=== PATIENT | female | born 1995 | race Caucasian/White ===

== ENCOUNTER → 2023-09-01 | Outpatient (CLI) | payer BC ==
--- NOTE | 2023-09-01 15:09 | US ---
EXAMINATION TYPE: Transabdominal DATE OF EXAM: 09/01/2023 2:41 PM COMPARISON: NONE CLINICAL INDICATION: Female, 28 years old with history of O46.91 BLEEDING; Patient states last period was 06/29/2023, but has irregular cycles. Patient states this is her first . Heavy bleeding for one day, clotting and cramping. EXAM PERFORMED: Transvaginal (TV) and Transabdominal (TA) EXAM MEASUREMENTS: GESTATIONAL AGE / DATING Physician Established: Not yet established Dates by LMP: Patient states last period was 06/29/2023, but has irregular cycles (9 weeks/1 days) MATERNAL ANATOMY Uterus: 8.9 x 4.3 x 5.6cm Right Ovary: not visualized Left Ovary: 2.1 x 2.0 x 2.2cm Post CDS / Adnexa: WNL Presence of free fluid: No Presence of corpus luteal cyst: No Presence of subchorionic bleed: No GESTATION / SURVEY IUP: No IUP seen at this time Beta HcG (if available): Not available at this time No IUP seen today. Endometrium contains hypoechoic streaks within and measures 1.2cm. Right ovary n ot seen due to overlying bowel gas and patient body habitus. Prelim given to ordering physician at 14:55 pm IMPRESSION: 1. No intrauterine gestation identified. Consider spontaneous and ectopic within t he differential. Correlate with beta hCG
== END | disposition home or self-care (01) ==
LOC: RADUSWWP 13:54
PROVIDERS: ATTEND Obstetrics & Gynecology
DX: O20.0 Threatened abortion (principal)
CPT/HCPCS: 36415; 76801; 76817; 86850; 86900; 86901

== ENCOUNTER → 2023-09-02 | Outpatient (CLI) | payer BC | END | disposition home or self-care (01) | LOC: LABWHC1 16:34 | PROVIDERS: ATTEND Obstetrics & Gynecology | DX: O03.9 Complete or unspecified spontaneous abortion without complication (principal) | CPT/HCPCS: 36415; 84702 ==

== ENCOUNTER → 2023-09-06 | Outpatient (CLI) | payer BC | END | disposition home or self-care (01) | LOC: LABWHC1 09:28 | PROVIDERS: ATTEND Obstetrics & Gynecology | DX: O03.9 Complete or unspecified spontaneous abortion without complication (principal) | CPT/HCPCS: 36415; 84702 ==